=== PATIENT | male | born 1940 | race Caucasian/White ===

== ENCOUNTER → 2019-02-28 10:42 | Outpatient (BNVA) | payer MEDICARE, SELFPAY | PROVIDERS: PCP Internal Medicine; Referring Provider Internal Medicine; Visit Provider Surgery | DX: L97.928 Non-pressure chronic ulcer of unspecified part of left lower leg with other specified severity (principal); I83.002 Varicose veins of unspecified lower extremity with ulcer of calf; I10 Essential (primary) hypertension | CPT/HCPCS: 29580; 99213 ==

== ENCOUNTER → 2019-03-07 12:37 | Outpatient (BNVA) | payer MEDICARE, SELFPAY | PROVIDERS: PCP Internal Medicine; Referring Provider Internal Medicine; Visit Provider Surgery | DX: I87.2 Venous insufficiency (chronic) (peripheral) (principal); L97.222 Non-pressure chronic ulcer of left calf with fat layer exposed; I10 Essential (primary) hypertension | CPT/HCPCS: 29580; 99213 ==

== ENCOUNTER → 2019-03-14 13:38 | Outpatient (BNVA) | payer MEDICARE, SELFPAY | PROVIDERS: PCP Internal Medicine; Referring Provider Internal Medicine; Visit Provider Surgery | DX: L97.928 Non-pressure chronic ulcer of unspecified part of left lower leg with other specified severity (principal); Z48.00 Encounter for change or removal of nonsurgical wound dressing | CPT/HCPCS: 29580; 99212; 99213 ==

== ENCOUNTER → 2019-03-20 13:39 | Outpatient (BNVA) | payer MEDICARE, SELFPAY | PROVIDERS: Referring Provider Internal Medicine; Visit Provider Surgery | DX: Z48.00 Encounter for change or removal of nonsurgical wound dressing (principal); L97.929 Non-pressure chronic ulcer of unspecified part of left lower leg with unspecified severity | CPT/HCPCS: 29580; 99211 ==

== ENCOUNTER → 2019-03-25 13:46 | Outpatient (BNVA) | payer MEDICARE, SELFPAY | PROVIDERS: Visit Provider Physical Therapy Assistant | DX: Z48.00 Encounter for change or removal of nonsurgical wound dressing (principal); I83.002 Varicose veins of unspecified lower extremity with ulcer of calf | CPT/HCPCS: 29580; 99212 ==

== ENCOUNTER → 2019-03-28 14:08 | Outpatient (BNVA) | payer MEDICARE, SELFPAY | PROVIDERS: PCP Internal Medicine; Referring Provider Internal Medicine; Visit Provider Surgery | DX: I87.2 Venous insufficiency (chronic) (peripheral) (principal); L97.222 Non-pressure chronic ulcer of left calf with fat layer exposed; Z48.00 Encounter for change or removal of nonsurgical wound dressing | CPT/HCPCS: 29580; 99213 ==

== ENCOUNTER → 2019-04-04 14:25 | Outpatient (BNVA) | payer MEDICARE, SELFPAY | PROVIDERS: PCP Internal Medicine; Referring Provider Internal Medicine; Visit Provider Physical Therapy Assistant | DX: Z48.00 Encounter for change or removal of nonsurgical wound dressing (principal) | CPT/HCPCS: 29580 ==

== ENCOUNTER → 2019-04-11 14:19 | Outpatient (BNVA) | payer MEDICARE, SELFPAY | PROVIDERS: PCP Internal Medicine; Referring Provider Internal Medicine; Visit Provider Surgery | DX: Z51.89 Encounter for other specified aftercare (principal); I87.2 Venous insufficiency (chronic) (peripheral); L97.222 Non-pressure chronic ulcer of left calf with fat layer exposed | CPT/HCPCS: 99213 ==

== ENCOUNTER → 2019-04-18 14:00 | Outpatient (BNVA) | payer MEDICARE, SELFPAY | PROVIDERS: PCP Internal Medicine; Referring Provider Internal Medicine; Visit Provider Surgery | DX: Z51.89 Encounter for other specified aftercare (principal) | CPT/HCPCS: NC OV ==

== ENCOUNTER → 2019-04-25 13:40 | Outpatient (BNVA) | payer MEDICARE, SELFPAY | PROVIDERS: PCP Internal Medicine; Referring Provider Internal Medicine; Visit Provider Surgery | DX: Z91.19 Patient's noncompliance with other medical treatment and regimen (principal); Z48.00 Encounter for change or removal of nonsurgical wound dressing | CPT/HCPCS: 99213 ==

== ENCOUNTER → 2024-10-07 12:45 | Outpatient (BNVA) | payer MEDICARE, SELFPAY | PROVIDERS: PCP Internal Medicine; Referring Provider Internal Medicine; Visit Provider Nurse Practitioner Gerontology | DX: C61 Malignant neoplasm of prostate (principal); Z98.890 Other specified postprocedural states | CPT/HCPCS: 99205 ==